=== PATIENT | female | born 1960 | race Caucasian/White ===

== ENCOUNTER 2024-01-18 15:27 | Outpatient (CLI) | payer BC | END 2024-01-18 15:28 | disposition home or self-care (01) | LOC: ULT 15:27 | PROVIDERS: ATTEND Obstetrics & Gynecology Female Pelvic Medicine and Reconstructive Surgery | DX: K62.5 Hemorrhage of anus and rectum (principal); R93.89 Abnormal findings on diagnostic imaging of other specified body structures | CPT/HCPCS: 76856 ==